=== PATIENT | male | born 1985 | race Caucasian/White ===

== ENCOUNTER 2018-03-25 08:40 | Outpatient (CLI) | payer BC ==
--- NOTE | 2018-03-25 11:00 | RAD ---
LUMBAR SPINE 4 VIEWS: Date: 03/25/18 Views obtained in neutral, flexion, and extension positions. HISTORY: Lumbar radiculopathy. FINDINGS/IMPRESSION: Lumbar vertebra maintain normal height and alignment. There is loss of the disc space height at L4-5 and mild loss of disc space at L5-S1. No evidence of spondylolisthesis. No significant change in alig nment with flexion or extension. POS: [facility]
--- NOTE | 2018-03-25 11:43 | MRI ---
MRI LUMBAR SPINE WITH AND WITHOUT CONTRAST: Technique: Multiplanar, multisequential imaging of the lumbar spine obtained. Post contrast images ob tained after administration of 16 cc of MultiHance IV. Indications: Lumbar radiculopathy. Low back pain with radiation to right leg. Lumbar surgery July 02. Comparison: MRI lumbar spine, 06-04-17. That exam revealed a large central and left disc extrusion at L 4-5. FINDINGS: Lumbar vertebrae maintain normal height and alignment. Mild loss of disc space at L4-5 and L5-S1. Pos t-operative changes are again noted at L4-5. There is enhancement posteriorly in the operative bed wi th evidence of left laminectomy change. The large exterior disc noted previously is no longer apparen t. There is a residual disc bulge at this site abutting the anterior thecal sac and slightly flatteni ng the anterior thecal sac to the right of midline. Enhancement surrounding the thecal sac on the lef t is seen from post-operative change from prior discectomy. No significant central canal stenosis. No evidence of foraminal stenosis. L1-2: No disc bulge or protrusion. L2-3: No disc bulge or protrusion. No central canal or foraminal stenosis. L3-4: A small protrusion centrally and slightly to the right was described previously. This finding i s again seen without significant interval change. There is a broad based bulge with small asymmetric protrusion centrally and slightly to the right which indents the anterior thecal sac centrally and th e right and appears to displace the traversing right L4 nerve root. It does result in mild central ca nal stenosis. L5-S1: A small protrusion was described previously. On that exam there is a small annular fissure and small protrusion centrally and slightly to the right. This does mildly displace the traversing right S1 nerve root. No significant central canal stenosis. IMPRESSION: 1. Post op changes at L4-5 as described. 2. Small protrusions at L3-4 and L5-S1 as described. POS: [facility]
[2018-03-25] MEDS ORDERED: Gadobenate Dimeglumine 529 MG/1 ML (20ML VIAL) ONE (15:10)
== END 2018-03-25 08:41 | disposition home or self-care (01) ==
LOC: TBSIIMAG 08:40
PROVIDERS: ATTEND Surgery
DX: M51.17 Intervertebral disc disorders with radiculopathy, lumbosacral region (principal)
CPT/HCPCS: 72110; 72158; A9579

== ENCOUNTER 2023-05-16 08:00 | Outpatient (CLI) | payer BC | END 2023-05-16 08:01 | disposition home or self-care (01) | LOC: SCSMRI 08:00 | PROVIDERS: ATTEND Surgery | DX: M51.26 Other intervertebral disc displacement, lumbar region (principal); M79.606 Pain in leg, unspecified; M47.816 Spondylosis without myelopathy or radiculopathy, lumbar region; M51.27 Other intervertebral disc displacement, lumbosacral region | CPT/HCPCS: 72110; 72148 ==